=== PATIENT | male | born 2000 | race Hispanic/Latino ===

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

== ENCOUNTER 2022-04-29 06:29 | Emergency (ER) | payer OTHER ==
[2022-04-29 07:15] LABS: #Basophils 0.1 thou/uL (0.0-0.2); #Eosinphils 0.6 thou/uL (0.0-0.7); #Monocytes 0.5 thou/uL (0.11-0.59); #Neutrophils 4.6 thou/uL (1.40-6.50); %Basophils 0.9 % (0.0-1.0); %Eosinophils 6.3 % (0.0-10.0); %Lymphocytes 34.3 % (28.0-48.0); %Monocytes 5.9 % (0.0-4.0); %Neutrophils 52.5 % (31.0-61.0); Hemoglobin 17.6 g/dL (14.0-18.0); Mean Corpuscular HGB CONC 35.9 g/dL (32.0-36.0); Mean Corpuscular Hemoglobin 34.3 pg (25.0-35.0); Mean Corpuscular Volume 95.6 fl (78.0-98.0); Mean Platelet Volume 7.2 fL (7.4-10.4); Platelet Count 361 10x3/uL (130-400); RBC Distribution Width 11.7 % (11.5-14.5); Red Blood Cell (RBC) Count 5.14 mill/uL (4.00-5.20); White Blood Cell (WBC) Count 8.8 10x3/uL (4.8-10.8)
[2022-04-29 07:27] LABS: ALT (SGPT) 19 U/L (8-55); AST (SGOT) 21 U/L (10-45); Albumin 4.4 g/dL (3.5-5.0); Alkaline Phosphatase 70 U/L (50-130); Anion Gap 10 mmol/L (10-20); BUN (Urea Nitrogen) 9 mg/dL (8.4-21.0); Bilirubin, Total 0.8 mg/dL (0.2-1.2); Calc. Creatinine Clearance 0 mL/min (70-130); Calcium 9.4 mg/dL (7.8-10.44); Carbon Dioxide 29 mmol/L (22-29); Chloride 104 mmol/L (98-107); Estimated GFR 128; Glucose 97 mg/dL (70-105); Potassium 4.1 mmol/L (3.5-5.1); Protein, Total 6.4 g/dL (6.0-8.3); Sodium 139 mmol/L (136-145)
== END 2022-04-29 07:45 | disposition home or self-care (01) ==
LOC: ERS 06:29
DX: R10.9 Unspecified abdominal pain (principal)
CPT/HCPCS: 36415; 80053; 85025; 99284

== ENCOUNTER 2022-05-07 11:36 | Outpatient (CLI) | payer OTHER | END 2022-05-07 11:37 | disposition home or self-care (01) | LOC: BICRAD 11:36 | PROVIDERS: ATTEND Physician Assistant Medical | DX: R10.9 Unspecified abdominal pain (principal); K59.00 Constipation, unspecified; R61 Generalized hyperhidrosis; F41.9 Anxiety disorder, unspecified; R93.3 Abnormal findings on diagnostic imaging of other parts of digestive tract | CPT/HCPCS: 71046 ==

== ENCOUNTER 2022-08-29 10:11 | Outpatient (CLI) | payer OTHER | END 2022-08-29 10:12 | disposition home or self-care (01) | LOC: BICRAD 10:11 | PROVIDERS: ATTEND Physician Assistant Medical | DX: K59.00 Constipation, unspecified (principal) | CPT/HCPCS: 74018 ==

== ENCOUNTER 2022-09-01 11:30 | Outpatient (CLI) | payer OTHER | END 2022-09-01 11:31 | disposition home or self-care (01) | LOC: BICRAD 11:30 | PROVIDERS: ATTEND Physician Assistant Medical | DX: K59.00 Constipation, unspecified (principal) | CPT/HCPCS: 74018 ==